=== PATIENT | male | born 1965 | race Caucasian/White ===

== ENCOUNTER → 2016-11-25 | Outpatient (CLI) | payer OTHER ==
--- NOTE | 2016-11-25 17:55 | CARD ---
APPROVED REPORT INDICATION Chest Pain RISK FACTORS Obesity Reason : Patient complained of pain PROCEDURE The patient underwent an exercise Stress Test using the [employer] protocol. Blood pressure, heart rate, a nd EKG were monitored. An Echocardiogram was performed by telegraph repeater technician in four stages in quad fashion. At peak stress four se lected images were obtained and placed side by side with resting images for comparison. STRESS ECHO FINDINGS The resting Echocardiogram showed normal left ventricular contractility with an estimated Ejection Fr action of about 55 %. Normal augmentation of myocardial wall segments using a 16 segment model. Test Type: Exercise Stress Nurse/Tech: talisha simon Test Indications: chest pain, fatigue Cardiac History and Allergies: NONE STATED, SEE EHR Medications: SEE EHR Medical History: NONE STATED, SEE EHR Resting ECG: SR Resting Heart Rate: 69 bpm Resting Blood Pressure: 131/87mmHg Pretest Chest Pain: No chest pain Nurse/Tech Notes LUNG SOUNDS CLEAR, S1S2 WNL. PT STATES HE FEELS MORE FATIGUE THAN NORMAL AND AT TIMES LIKE HE HAS A S QUEEZE ON HIS HEART SOME TIMES. Consent: The procedure was explained to the patient in lay terms. Informed consent was witnessed. Kole león was entered into [employer]. History and Stress Test performed by TALISHA SIMON Stress Symptoms NONE STATED. PT WAS AT A FULL RUN AND ABLE TO MAINTAIN UNTIL HE SAID I'M DONE. POST EXERCISE Reason for Termination: Reached target heart rate Target HR: 145 Max HR: 164 bpm 96% of Maximum Predicted HR: 170 bpm Exercise duration: 13:37 min:sec, 5 Stage Exercise capacity: 14.8METs Max Blood Pressure: 148/82mmHg Blood Pressure response to exercise: Normal blood pressure response during stress. Heart Rate response to exercise: WNL Chest Pain: No. Arrhythmia: No. ST Change: No. INTERPRETATION Stress EKG Conclusion: Normal treadmill EKG. STRESS ECG Stress EKG shows no significant changes. Preliminary Notification Critical Value: No <Conclusion> Excellent exercise capacity with 14.8 mets Normal BP response. Normal resting wall motion and EF of 55% Appropriate response to stress with normal wall motion and EF > 60% (Of note, some images were obtain ed at less than target heart rate but overall no wall motion noted)
== END | disposition home or self-care (01) ==
LOC: ECHO 13:42
PROVIDERS: ATTEND Internal Medicine Cardiovascular Disease
DX: F43.9 Reaction to severe stress, unspecified (principal); R07.2 Precordial pain; E66.9 Obesity, unspecified
CPT/HCPCS: 93017; 93350

== ENCOUNTER → 2016-12-24 | Outpatient (CLI) | payer OTHER ==
--- NOTE | 2016-12-24 10:33 | RAD ---
Abdominal ultrasound, 12/24/2016: History: Abnormal liver function test The gallbladder is within normal limits in size. There is no sonographic evidence of cholelithiasis. The gallbladder wilson are not thickened. No bile duct dilatation is seen. The liver demonstrates increased echogenicity, most commonly due to fatty change. No hepatic mass is evident. The pancreas was obscured by overlying bowel. The spleen is of normal size. No renal abnormality is detected. The abdominal aorta is of normal caliber. The inferior vena cava shows no abnormality. No free fluid is evident in the abdomen. IMPRESSION: 1. Increased hepatic echogenicity suggesting fatty change. 2. The abdominal ultrasound is otherwise unremarkable, although the pancreas was obscured by overlying bowel.
== END | disposition home or self-care (01) ==
LOC: US 07:52
PROVIDERS: ATTEND Family Medicine
DX: R79.89 Other specified abnormal findings of blood chemistry (principal)
CPT/HCPCS: 76700

== ENCOUNTER → 2016-12-24 | Outpatient (CLI) | payer OTHER ==
--- NOTE | 2016-12-24 08:39 | RAD ---
Chest, 2 views, 12/24/2016: History: Dyspnea The heart size and pulmonary vascularity are normal. There is calcific plaquing and mild tortuosity of the thoracic aorta. No pulmonary infiltrates are seen. There is no evidence of pleural fluid. Mild spurring is present in the spine. IMPRESSION: 1. Aortic atherosclerosis. 2. No acute cardiopulmonary abnormality is detected.
== END | disposition home or self-care (01) ==
LOC: RAD 07:57
PROVIDERS: ATTEND Internal Medicine Critical Care Medicine
DX: I70.0 Atherosclerosis of aorta (principal)
CPT/HCPCS: 71020

== ENCOUNTER → 2017-01-21 | Outpatient (CLI) | payer OTHER ==
[~2017-01-21] MED LIST: METHACHOLINE CHLORIDE 100 MG VIAL.NEB. IH ONE
--- NOTE | 2017-01-21 11:01 | PDOC4 ---
PROCEDURE Procedure SPIROMETRY DOS: 01/21/17 REFERRING PHYSICIAN: Dr GALINDO Pts FVC was 5.48 which was 109% predicted. FEV1 4.27 (112% predicted). FEV1/FVC ratio normal. No response to BD. IMPRESSION 1.Normal spirometry LAVERN GIRALDO MD Jan 21, 2017 11:01
== END | disposition home or self-care (01) ==
LOC: PF 07:42
PROVIDERS: ATTEND Internal Medicine Pulmonary Disease
DX: R06.00 Dyspnea, unspecified (principal)
CPT/HCPCS: 94060; 94070; J7674